=== PATIENT | male | born 1985 | race Caucasian/White ===

== ENCOUNTER 2017-06-14 17:07 | Observation (INO) ==
[2017-06-14] MEDS ORDERED: 0.9 % Sodium Chloride 1,000 ML IVC ONE (17:20)
[2017-06-14] MEDS ORDERED: *HR* HYDROmorphone (PF) 1 MG/ML SYRINGE IVP ONE (17:20)
[2017-06-14] MEDS ORDERED: Lidocaine/EPI 1:100k 1% 20 ML VIAL INFILT ONE (17:24)
--- NOTE | 2017-06-14 17:25 | Emergency Department Note ---
Disposition Clinical Impression: Syncope Qualifiers: Syncope type: unspecified Qualified Code(s): R55 - Syncope and collapse Disposition: Still a Patient Condition: Fair Referrals: NONE,PCP [Primary Care Provider] - Forms: ED Satisfaction Letter Time of Disposition: 19:22 General Adult HPI - General Chief complaint: ED Fall Stated complaint: fall Time Seen by Provider: 06/14/17 17:20 Source: patient, EMS Limitations: no limitations Nursing Notes Reviewed: Yes Vital Signs Reviewed: Yes - History of Present Illness HPI Narrative: Male patient sustained a ground-level fall at neighbor's house. They attempted to get the patient back home and he had another syncopal episode while over there. He is immobilized in a c-collar at this time. He is alert and oriented 3 however appears to be confused. Does have a laceration to the left side of his forehead. Also abrasion to his left chest wall near his left shoulder. Complains of a neck pain and left shoulder pain. Pain Scale: 8 - Related Data Previous Rx's Medication Instructions Recorded Ibuprofen [Motrin] 600 mg PO Q6-8H PRN #30 tab 05/19/16 Ondansetron [Zofran] 8 mg PO Q8HR PRN #9 tablet 05/19/16 Promethazine [Phenergan] 25 mg PO Q6-8H PRN #9 tablet 05/19/16 Allergies Allergy/AdvReac Type Severity Reaction Status Date / Time No Known Allergies Allergy Verified 05/19/16 17:44 All systems ED: reviewed and negative except as stated. Constitutional: Denies: fever ENT ED: Denies: congestion Cardiovascular: Reports: syncope. Denies: chest pain, palpitations Respiratory: Denies: cough, dyspnea Gastrointestinal: Denies: abdominal pain, nausea, vomiting, diarrhea, hematemesis, melena, hematochezia Genitourinary: Denies: urgency, dysuria, frequency, hematuria Musculoskeletal: Reports: neck pain, other (Left shoulder pain) Integumentary: Reports: abrasion, other (Laceration to left superior orbital area.) Neurological: Denies: headache Past Medical History - Past Medical History Medical history: Reports: no medical history Psychiatric history: Reports: no psych history - Social History Smoking Status: Current every day smoker Smokeless Tobacco Status: No Alcohol use: Reports: none Drug use: Reports: none Physical Exam - General Limitations: no limitations, other (Appears confused however is aware of his person place and time.) General appearance: alert, in no apparent distress - Head Head exam: normocephalic - Eye Eye exam: Present: normal appearance, EOMI, other (3 cm laceration to left superior orbital area. Linear). Absent: scleral icterus, periorbital tenderness - ENT ENT exam: normal exam, normal oropharynx, mucous membranes moist - Neck Neck exam: Present: normal inspection, trachea midline, tenderness (To palpation of C4-C5 area). Absent: lymphadenopathy - Chest Chest inspection: Present: symmetric chest wall rise, other (Abrasion to left chest wall near her left shoulder.). Absent: tenderness - Respiratory Respiratory exam: Present: normal lung sounds bilaterally. Absent: respiratory distress, accessory muscle use - Cardiovascular Cardiovascular exam: Present: regular rate, normal rhythm, normal heart sounds - Abdominal Exam Abdominal exam: Present: soft, Non-Tender, normal bowel sounds. Absent: tenderness, distention, guarding, rebound, rigidity, Almaraz's sign, Rovsing's sign - Extremities Exam Extremities exam: Present: normal capillary refill. Absent: tenderness, pedal edema - Expanded Upper Extremity Exam Shoulder exam: Present: tenderness (Palpation the left shoulder. Patient does not want to cooperate when we attempt to move the shoulder.) Arm exam: Present: normal inspection, full ROM Elbow exam: Present: normal inspection, full ROM Forearm/Wrist exam: Present: normal inspection, full ROM Hand exam: Present: normal inspection, full ROM Vascular exam: Normal: capillary refill, radial pulse - Expanded Lower Extremity Exam Hip/Pelvis exam: Present: normal inspection, full ROM Upper leg exam: Present: normal inspection, full ROM Knee exam: Present: normal inspection, full ROM Lower leg exam: Present: normal inspection, full ROM Ankle exam: Present: normal inspection, full ROM Foot/toe exam: Present: normal inspection, full ROM Neurovascular/Tendon exam: Absent: motor deficit, sensory deficit, tendon deficit - Back Exam Back exam: Present: normal inspection, full ROM. Absent: tenderness, CVA tenderness (R), CVA tenderness (L) - Neurological Exam Neurological exam: Present: alert, oriented X3 - Psychiatric Psychiatric exam: Present: normal affect, normal mood - Skin Skin exam: Present: warm, dry, intact, normal color. Absent: rash, cyanosis, diaphoresis, erythema Course Course Narrative: The patient brought in by EMS in a c-collar. They report patient was initially hypotensive for them however is normotensive now. Therefore the patient was at a neighbor's house and had a ground-level fall. Patient attempted to get the patient to his normal house and he syncopized while there. The patient is alert and oriented to person place and time at this time however does appear confused. He has a laceration to his left orbital area is fractionally 3 cm and bleeding is controlled. He also has an abrasion to his left chest wall near his left shoulder. He complains of neck pain and left shoulder pain. He has no other signs of obvious trauma. He does have tenderness to palpation of the C4 area. His pupils are equal and reactive. His airway is open and patent. Lung sounds are clear heart tones are normal abdomen is soft and nontender. Bedside fast was normal. He has full range of motion of both lower extremities with good pulses. There is no signs of deformity. He has good range of motion of his right upper extremity with good pulses in all 4 extremities. He does not want to move his left shoulder whenever I attempt to manipulate this. His pelvis is stable. Abdomen is soft and nontender with no signs of ecchymosis. Concern for possible seizure activity due to patient being confused at this time. He reports different stories to me in my attending. He initially states that he has had his tetanus shot within the past 2 weeks because he was cut by resting razor however he is now stating he did not tell me this and he has no idea what the story came from. Is no history of seizure activity. He denies any drug use or alcohol consumption. Patient's head CT was normal with a possible nasal bone fracture and C-spine scan was normal as well. His head laceration was cleaned and sutured with 3 sutures. We will provide patient with a tetanus shot. Patient's mentation was still confused at time of sign out to night crew. Vital Signs Temperature 98.3 F 06/14/17 17:08 Pulse Rate 72 06/14/17 17:08 Respiratory Rate 16 06/14/17 17:08 Blood Pressure 138/74 06/14/17 17:08 O2 Sat by Pulse Oximetry 98 06/14/17 17:08 Temperature 98.3 F 06/14/17 17:08 Pulse Rate 104 08/15/17 19:12 Respiratory Rate 14 06/14/17 19:12 Blood Pressure 124/81 06/14/17 19:12 O2 Sat by Pulse Oximetry 96 06/14/17 19:12 Oxygen Delivery Oxygen Delivery Room Air Procedures - Laceration Laceration 1 Site: face Side (If applicable): left Size (cm): 3 Description: linear Depth: simple, single layer Local Anesthetic: lidocaine 1%, with epi Amount of Anesthesia Used (mL): 4 Pre-repair: wound explored, irrigated extensively, deep structures intact Size: 6-0 Number of sutures/carie: 3 Medical Decision Making - Medical Records Medical records reviewed: Yes I reviewed the patient's medical records. - Lab Data Lab results reviewed: Yes I reviewed the patient's lab results. Result diagrams: 06/14/17 18:17 06/14/17 18:17 Lab Results 06/14/17 06/14/17 06/14/17 Range/Units 17:32 18:17 18:17 WBC 14.0 H (4.3-11.1) K/mcL RBC 4.90 (4.19-5.50) M/mcL Hgb 14.6 (12.9-16.9) g/dL Hct 44.6 (37.5-50.1) % MCV 91.0 (83.0-100.0) fL MCH 29.8 (28.0-33.3) pg MCHC 32.7 (31.6-35.5) g/dL RDW 12.5 (11.5-14.5) % Plt Count 271 (140-400) K/mcL MPV 9.9 (9.4-12.4) fL Immature Gran % 0.4 (0-4) % Seg Neutrophils % 78.1 % Lymphocytes % 12.3 % Monocytes % 6.6 % Eosinophils % 2.4 % Basophils % 0.2 % Neutrophils # 10.9 H (1.6-8.9) K/mcL Lymphocytes # 1.7 (0.6-4.6) K/mcL Monocytes # 0.9 (0.0-1.3) K/mcL Eosinophils # 0.3 (0.0-0.6) K/mcL Basophils # 0.0 (0.0-0.2) K/mcL Sodium 141 (136-145) mEq/L Potassium 4.4 (3.5-4.5) mEq/L Chloride 107 (98-109) mEq/L Carbon Dioxide 27 (19-29) mEq/L BUN 11 (8-26) mg/dL Creatinine 0.96 (0.72-1.25) mg/dL Est GFR ( Amer) > 60 (> 60) Est GFR (Non-Af Amer) > 60 (> 60) BUN/Creatinine Ratio 11 (6-26) Glucose 92 (70-99) mg/dL POC Glucose 94 H (58-89) Calculated Osmolality 291 (280-300) Calcium 9.4 (8.6-10.8) mg/dL Magnesium (1.6-2.6) mg/dL Creatine Kinase (30-200) Units/L Urine Color (Yellow) Urine Clarity (Clear) Urine pH (5.0-8.0) pH Units Ur Specific [place] (1.010-1.025) Urine Protein (Neg-Trace) mg/dL Urine Glucose (UA) (Normal) mg/dL Urine Ketones (Negative) mg/dL Urine Blood (Negative) Urine Nitrite (Negative) Urine Bilirubin (Negative) Urine Urobilinogen (Normal) mg/dL Ur Leukocyte Esterase (Negative) Urine Microscopic RBC (0-3) per hpf Urine Microscopic WBC (0-3) per hpf Ur Squamous Epith Cells (None-Few) per lpf Urine Bacteria (None-Few) per hpf Hyaline Casts (None-Few) per lpf Ur Culture Indicated? (NO) Ethyl Alcohol (0-10) mg/dL 06/14/17 06/14/17 Range/Units 18:17 19:00 WBC (4.3-11.1) K/mcL RBC (4.19-5.50) M/mcL Hgb (12.9-16.9) g/dL Hct (37.5-50.1) % MCV (83.0-100.0) fL MCH (28.0-33.3) pg MCHC (31.6-35.5) g/dL RDW (11.5-14.5) % Plt Count (140-400) K/mcL MPV (9.4-12.4) fL Immature Gran % (0-4) % Seg Neutrophils % % Lymphocytes % % Monocytes % % Eosinophils % % Basophils % % Neutrophils # (1.6-8.9) K/mcL Lymphocytes # (0.6-4.6) K/mcL Monocytes # (0.0-1.3) K/mcL Eosinophils # (0.0-0.6) K/mcL Basophils # (0.0-0.2) K/mcL Sodium (136-145) mEq/L Potassium (3.5-4.5) mEq/L Chloride (98-109) mEq/L Carbon Dioxide (19-29) mEq/L BUN (8-26) mg/dL Creatinine (0.72-1.25) mg/dL Est GFR ( Amer) (> 60) Est GFR (Non-Af Amer) (> 60) BUN/Creatinine Ratio (6-26) Glucose (70-99) mg/dL POC Glucose (58-89) Calculated Osmolality (280-300) Calcium (8.6-10.8) mg/dL Magnesium 1.7 (1.6-2.6) mg/dL Creatine Kinase 75 (30-200) Units/L Urine Color Yellow (Yellow) Urine Clarity Cloudy A (Clear) Urine pH 7.0 (5.0-8.0) pH Units Ur Specific [place] 1.022 (1.010-1.025) Urine Protein Negative (Neg-Trace) mg/dL Urine Glucose (UA) Normal (Normal) mg/dL Urine Ketones Trace H (Negative) mg/dL Urine Blood Negative (Negative) Urine Nitrite Negative (Negative) Urine Bilirubin Negative (Negative) Urine Urobilinogen Normal (Normal) mg/dL Ur Leukocyte Esterase Negative (Negative) Urine Microscopic RBC 0-3 (0-3) per hpf Urine Microscopic WBC 0-3 (0-3) per hpf Ur Squamous Epith Cells Many H (None-Few) per lpf Urine Bacteria None Seen (None-Few) per hpf Hyaline Casts None Seen (None-Few) per lpf Ur Culture Indicated? NO (NO) Ethyl Alcohol < 10 (0-10) mg/dL - Radiology Data Radiology results reviewed: Yes I reviewed the patient's radiology results. Cervical Spine CT 06/14/17 17:20 IMPRESSION: No acute abnormality of the cervical spine. D/ / Jong Kamara MD / Jong Kamara MD Interpreting Provider: Jong Kamara MD Chest X-Ray 06/14/17 17:20 IMPRESSION: Normal chest. D/ / Jong Kamara MD / Jong Kamara MD Interpreting Provider: Jong Kamara MD Head CT 06/14/17 17:20 IMPRESSION: No acute intracranial abnormality. D/ / Liana Alamo MD / Liana Alamo MD Interpreting Provider: Liana Alamo MD Shoulder X-Ray 06/14/17 17:29 IMPRESSION: No acute osseous abnormality. D/ / Nicholas Talavera / Nicholas Talavera Interpreting Provider: Nicholas Talavera Face CT 06/14/17 17:38 IMPRESSION: Question non right nasal bone fracture No acute osseous abnormality otherwise. D/ / Nicholas Talavera / Nicholas Talavera Interpreting Provider: Nicholas Talavera S.B.ABaltazar - S.BYasminAYasminRYasmin Background: Presenting Complaint (Syncope with fall and striking his head. Confusion on arrival.), Relevant PMH, Meds, & Allergies (None) Assessment: Vital Signs (EMS reports hypotension initially.), Course and respsone to treatment (Fluid bolus CT scan laceration repair. Tetanus shot.), Exam Concerns (Patient still appears to be confused however he is alert and oriented to person place and time.) Recommendation: Recommendation based on pending studies, treatments, or consults (Repeat neuro exam possible admission if neuro status is unclear.) S.B.A.RYasmin Report Given to: Viky Kaufman Time: 19:23
[2017-06-14] MEDS ORDERED: Tdap (Boostrix) Vaccine 0.5 ML SYRINGE IM ONE (17:30)
--- NOTE | 2017-06-14 17:30 | Emergency Department Note ---
Disposition Clinical Impression: Syncope, Substance abuse Disposition: Admitted As Inpatient Condition: Good General Adult HPI - General Chief complaint: ED Fall Stated complaint: fall Time Seen by Provider: 06/14/17 17:20 Source: patient, EMS Limitations: no limitations - History of Present Illness Pain Scale: 8 - Related Data Home Medications Medication Instructions Recorded Confirmed No Known Home Drugs 06/14/17 06/14/17 Allergies Allergy/AdvReac Type Severity Reaction Status Date / Time No Known Allergies Allergy Verified 05/19/16 17:44 Past Medical History - Past Medical History Medical history: Reports: no medical history Psychiatric history: Reports: no psych history - Social History Smoking Status: Current every day smoker Smokeless Tobacco Status: No Alcohol use: Reports: none Drug use: Reports: none Physical Exam - General Limitations: no limitations General appearance: alert, in no apparent distress Course Vital Signs Temperature 98.3 F 06/14/17 17:08 Pulse Rate 72 06/14/17 17:08 Respiratory Rate 16 06/14/17 17:08 Blood Pressure 138/74 06/14/17 17:08 O2 Sat by Pulse Oximetry 98 06/14/17 17:08 Temperature 98.2 F 06/15/17 06:53 Pulse Rate 77 06/15/17 06:53 Respiratory Rate 16 06/15/17 06:53 Blood Pressure 124/82 06/15/17 06:53 O2 Sat by Pulse Oximetry 98 06/15/17 06:53 Oxygen Delivery Oxygen Delivery Room Air Medical Decision Making - Lab Data Result diagrams: 06/15/17 04:47 06/14/17 18:17 Lab Results 06/14/17 06/14/17 06/14/17 Range/Units 17:32 18:17 18:17 WBC 14.0 H (4.3-11.1) K/mcL RBC 4.90 (4.19-5.50) M/mcL Hgb 14.6 (12.9-16.9) g/dL Hct 44.6 (37.5-50.1) % MCV 91.0 (83.0-100.0) fL MCH 29.8 (28.0-33.3) pg MCHC 32.7 (31.6-35.5) g/dL RDW 12.5 (11.5-14.5) % Plt Count 271 (140-400) K/mcL MPV 9.9 (9.4-12.4) fL Immature Gran % 0.4 (0-4) % Seg Neutrophils % 78.1 % Lymphocytes % 12.3 % Monocytes % 6.6 % Eosinophils % 2.4 % Basophils % 0.2 % Neutrophils # 10.9 H (1.6-8.9) K/mcL Lymphocytes # 1.7 (0.6-4.6) K/mcL Monocytes # 0.9 (0.0-1.3) K/mcL Eosinophils # 0.3 (0.0-0.6) K/mcL Basophils # 0.0 (0.0-0.2) K/mcL Sodium 141 (136-145) mEq/L Potassium 4.4 (3.5-4.5) mEq/L Chloride 107 (98-109) mEq/L Carbon Dioxide 27 (19-29) mEq/L BUN 11 (8-26) mg/dL Creatinine 0.96 (0.72-1.25) mg/dL Est GFR ( Amer) > 60 (> 60) Est GFR (Non-Af Amer) > 60 (> 60) BUN/Creatinine Ratio 11 (6-26) Glucose 92 (70-99) mg/dL POC Glucose 94 H (58-89) Calculated Osmolality 291 (280-300) Calcium 9.4 (8.6-10.8) mg/dL Magnesium (1.6-2.6) mg/dL Creatine Kinase (30-200) Units/L Troponin I (0-0.03) ng/mL Urine Color (Yellow) Urine Clarity (Clear) Urine pH (5.0-8.0) pH Units Ur Specific [place] (1.010-1.025) Urine Protein (Neg-Trace) mg/dL Urine Glucose (UA) (Normal) mg/dL Urine Ketones (Negative) mg/dL Urine Blood (Negative) Urine Nitrite (Negative) Urine Bilirubin (Negative) Urine Urobilinogen (Normal) mg/dL Ur Leukocyte Esterase (Negative) Urine Microscopic RBC (0-3) per hpf Urine Microscopic WBC (0-3) per hpf Ur Squamous Epith Cells (None-Few) per lpf Urine Bacteria (None-Few) per hpf Hyaline Casts (None-Few) per lpf Ur Culture Indicated? (NO) Urine Opiates Screen (Bqtpxe=519) ng/mL Ur Barbiturates Screen (Shjrel=513) ng/mL Ur Phencyclidine Scrn (Cutoff=25) ng/mL Ur Amphetamines Screen (Rmkpzt=4860) ng/mL U Benzodiazepines Scrn (Yxukpy=467) ng/mL Urine Cocaine Screen (Cutoff= 300) ng/mL U Marijuana (THC) Screen (Cutoff = 50) ng/mL Ethyl Alcohol (0-10) mg/dL 06/14/17 06/14/17 06/14/17 Range/Units 18:17 18:17 19:00 WBC (4.3-11.1) K/mcL RBC (4.19-5.50) M/mcL Hgb (12.9-16.9) g/dL Hct (37.5-50.1) % MCV (83.0-100.0) fL MCH (28.0-33.3) pg MCHC (31.6-35.5) g/dL RDW (11.5-14.5) % Plt Count (140-400) K/mcL MPV (9.4-12.4) fL Immature Gran % (0-4) % Seg Neutrophils % % Lymphocytes % % Monocytes % % Eosinophils % % Basophils % % Neutrophils # (1.6-8.9) K/mcL Lymphocytes # (0.6-4.6) K/mcL Monocytes # (0.0-1.3) K/mcL Eosinophils # (0.0-0.6) K/mcL Basophils # (0.0-0.2) K/mcL Sodium (136-145) mEq/L Potassium (3.5-4.5) mEq/L Chloride (98-109) mEq/L Carbon Dioxide (19-29) mEq/L BUN (8-26) mg/dL Creatinine (0.72-1.25) mg/dL Est GFR ( Amer) (> 60) Est GFR (Non-Af Amer) (> 60) BUN/Creatinine Ratio (6-26) Glucose (70-99) mg/dL POC Glucose (58-89) Calculated Osmolality (280-300) Calcium (8.6-10.8) mg/dL Magnesium 1.7 (1.6-2.6) mg/dL Creatine Kinase 75 (30-200) Units/L Troponin I 0.00 (0-0.03) ng/mL Urine Color Yellow (Yellow) Urine Clarity Cloudy A (Clear) Urine pH 7.0 (5.0-8.0) pH Units Ur Specific [place] 1.022 (1.010-1.025) Urine Protein Negative (Neg-Trace) mg/dL Urine Glucose (UA) Normal (Normal) mg/dL Urine Ketones Trace H (Negative) mg/dL Urine Blood Negative (Negative) Urine Nitrite Negative (Negative) Urine Bilirubin Negative (Negative) Urine Urobilinogen Normal (Normal) mg/dL Ur Leukocyte Esterase Negative (Negative) Urine Microscopic RBC 0-3 (0-3) per hpf Urine Microscopic WBC 0-3 (0-3) per hpf Ur Squamous Epith Cells Many H (None-Few) per lpf Urine Bacteria None Seen (None-Few) per hpf Hyaline Casts None Seen (None-Few) per lpf Ur Culture Indicated? NO (NO) Urine Opiates Screen (Dzwhhq=079) ng/mL Ur Barbiturates Screen (Oxgcbx=039) ng/mL Ur Phencyclidine Scrn (Cutoff=25) ng/mL Ur Amphetamines Screen (Ycfbeq=9129) ng/mL U Benzodiazepines Scrn (Adivih=631) ng/mL Urine Cocaine Screen (Cutoff= 300) ng/mL U Marijuana (THC) Screen (Cutoff = 50) ng/mL Ethyl Alcohol < 10 (0-10) mg/dL 06/14/17 Range/Units 19:00 WBC (4.3-11.1) K/mcL RBC (4.19-5.50) M/mcL Hgb (12.9-16.9) g/dL Hct (37.5-50.1) % MCV (83.0-100.0) fL MCH (28.0-33.3) pg MCHC (31.6-35.5) g/dL RDW (11.5-14.5) % Plt Count (140-400) K/mcL MPV (9.4-12.4) fL Immature Gran % (0-4) % Seg Neutrophils % % Lymphocytes % % Monocytes % % Eosinophils % % Basophils % % Neutrophils # (1.6-8.9) K/mcL Lymphocytes # (0.6-4.6) K/mcL Monocytes # (0.0-1.3) K/mcL Eosinophils # (0.0-0.6) K/mcL Basophils # (0.0-0.2) K/mcL Sodium (136-145) mEq/L Potassium (3.5-4.5) mEq/L Chloride (98-109) mEq/L Carbon Dioxide (19-29) mEq/L BUN (8-26) mg/dL Creatinine (0.72-1.25) mg/dL Est GFR ( Amer) (> 60) Est GFR (Non-Af Amer) (> 60) BUN/Creatinine Ratio (6-26) Glucose (70-99) mg/dL POC Glucose (58-89) Calculated Osmolality (280-300) Calcium (8.6-10.8) mg/dL Magnesium (1.6-2.6) mg/dL Creatine Kinase (30-200) Units/L Troponin I (0-0.03) ng/mL Urine Color (Yellow) Urine Clarity (Clear) Urine pH (5.0-8.0) pH Units Ur Specific [place] (1.010-1.025) Urine Protein (Neg-Trace) mg/dL Urine Glucose (UA) (Normal) mg/dL Urine Ketones (Negative) mg/dL Urine Blood (Negative) Urine Nitrite (Negative) Urine Bilirubin (Negative) Urine Urobilinogen (Normal) mg/dL Ur Leukocyte Esterase (Negative) Urine Microscopic RBC (0-3) per hpf Urine Microscopic WBC (0-3) per hpf Ur Squamous Epith Cells (None-Few) per lpf Urine Bacteria (None-Few) per hpf Hyaline Casts (None-Few) per lpf Ur Culture Indicated? (NO) Urine Opiates Screen Negative (Hbynst=545) ng/mL Ur Barbiturates Screen Negative (Buuvyh=267) ng/mL Ur Phencyclidine Scrn Negative (Cutoff=25) ng/mL Ur Amphetamines Screen Positive H (Wqxszk=9958) ng/mL U Benzodiazepines Scrn Negative (Hernok=287) ng/mL Urine Cocaine Screen Negative (Cutoff= 300) ng/mL U Marijuana (THC) Screen Positive H (Cutoff = 50) ng/mL Ethyl Alcohol (0-10) mg/dL Attestation Statement - Attestation Attestation: I examined this patient and my medical decision-making was reviewed with the Resident Physician. I agree with the documented findings, disposition and treatment plan as described except to the extent set forth below. [id number] time provided Patient is a poor historian. I am uncertain whether this is because he is post ictal. This is the second episode that happened since May [id number]. The event was witnessed by a family member. He has a 3 cm laceration to his left periorbital region. He is wearing a cervical collar. Plan of care and management discussed by me with the resident physician 18:48: Care to be endorsed to the oncoming physician Dr. Salmon at [address] results and reevaluation
[2017-06-14 18:28] LABS: Basophils % 0.2 %; Eosinophils # 0.3 K/mcL (0.0-0.6); Eosinophils % 2.4 %; Hematocrit 44.6 % (37.5-50.1); Hemoglobin 14.6 g/dL (12.9-16.9); Immature Granulocytes % 0.4 % (0-4); Lymphocytes # 1.7 K/mcL (0.6-4.6); Lymphocytes % 12.3 %; Mean Corpuscular HGB Conc 32.7 g/dL (31.6-35.5); Mean Corpuscular Hemoglobin 29.8 pg (28.0-33.3); Mean Platelet Volume 9.9 fL (9.4-12.4); Monocytes # 0.9 K/mcL (0.0-1.3); Monocytes % 6.6 %; Neutrophils # 10.9 K/mcL (1.6-8.9); Platelet Count 271 K/mcL (140-400); Red Cell Distribution Width 12.5 % (11.5-14.5); Segmented Neutrophils % 78.1 %
[2017-06-14 18:42] LABS: Creatine Kinase 75 Units/L (30-200); Magnesium 1.7 mg/dL (1.6-2.6)
[2017-06-14 18:43] LABS: BUN/Creatinine Ratio 11 (6-26); Blood Urea Nitrogen 11 mg/dL (8-26); Calcium 9.4 mg/dL (8.6-10.8); Carbon Dioxide 27 mEq/L (19-29); Chloride 107 mEq/L (98-109); Ethanol < 10 mg/dL (0-10); Glucose 92 mg/dL (70-99); Osmolality,Calculated 291 (280-300); Potassium 4.4 mEq/L (3.5-4.5); Sodium 141 mEq/L (136-145); eGFR For African Americans > 60 (> 60); eGFR For Non-African Americans > 60 (> 60)
[2017-06-14 19:11] LABS: Bilirubin,Urine Negative (Negative); Blood,Urine Negative (Negative); Clarity,Urine Cloudy (Clear); Color,Urine Yellow (Yellow); Glucose,Urine (UA) Normal (Normal); Ketones,Urine Trace mg/dL (Negative); Leukocyte Esterase,Urine Negative (Negative); Nitrite,Urine Negative (Negative); Protein,Urine Negative (Neg-Trace); Specific Gravity,Urine 1.022 (1.010-1.025); Urobilinogen,Urine Normal (Normal)
[2017-06-14 19:13] LABS: Bacteria,Urine None Seen per hpf (None-Few); Hyaline Casts,Urine None Seen per lpf (None-Few); RBC,Urine 0-3 per hpf (0-3); Squamous Epithelial Cell,Urine Many per lpf (None-Few); WBC,Urine 0-3 per hpf (0-3)
[2017-06-14 19:17] LABS: Amphetamine Screen,Urine Positive ng/mL (Cutoff=1000); Barbiturate Screen,Urine Negative ng/mL (Cutoff=200); Benzodiazepines Screen,Urine Negative ng/mL (Cutoff=200); Cannabinoid Screen,Urine Positive ng/mL (Cutoff = 50); Cocaine Screen,Urine Negative ng/mL (Cutoff= 300); Opiate Screen,Urine Negative ng/mL (Cutoff=300); Phencyclidine Screen,Urine Negative ng/mL (Cutoff=25)
--- NOTE | 2017-06-14 21:09 | Emergency Department Note ---
Disposition Clinical Impression: Substance abuse Syncope Qualifiers: Syncope type: unspecified Qualified Code(s): R55 - Syncope and collapse Disposition: Admitted As Inpatient Condition: Good General Adult HPI - General Chief complaint: ED Fall Stated complaint: fall Time Seen by Provider: 06/14/17 17:20 Source: patient, EMS Limitations: no limitations, other (Appears confused however is aware of his person place and time.) Nursing Notes Reviewed: Yes Vital Signs Reviewed: Yes - History of Present Illness Pain Scale: 8 - Related Data Home Medications Medication Instructions Recorded Confirmed No Known Home Drugs 06/14/17 06/14/17 Allergies Allergy/AdvReac Type Severity Reaction Status Date / Time No Known Allergies Allergy Verified 05/19/16 17:44 Constitutional: Denies: fever ENT ED: Denies: congestion Cardiovascular: Reports: syncope. Denies: chest pain, palpitations Respiratory: Denies: cough, dyspnea Gastrointestinal: Denies: abdominal pain, nausea, vomiting, diarrhea, hematemesis, melena, hematochezia Genitourinary: Denies: urgency, dysuria, frequency, hematuria Musculoskeletal: Reports: neck pain, other (Left shoulder pain) Integumentary: Reports: abrasion, other (Laceration to left superior orbital area.) Neurological: Denies: headache Past Medical History - Past Medical History Medical history: Reports: no medical history Psychiatric history: Reports: no psych history - Social History Smoking Status: Current every day smoker Smokeless Tobacco Status: No Alcohol use: Reports: none Drug use: Reports: none Physical Exam - General Limitations: no limitations, other (Appears confused however is aware of his person place and time.) General appearance: alert, in no apparent distress Course - Reevaluation(s) Reevaluation #1: Patient taken over at signout from Dr. Gonzalez. The patient has had 2 episodes of "falling out". Both involving head injuries and been associated with significant confusion afterwards. High concern for possible seizure versus syncope. The patient's EKG is normal sinus rhythm. Patient with slightly elevated white count. Urine tox shows marijuana and amphetamines. Patient denies amphetamine use. Patient states that he drinks 8 monster energy drinks daily. Discussed with neurology. These episodes do not warrants the administration of seizure medications at this time. High concern for cardiac etiology due to amphetamine and caffeine use. Patient can be brought in for observation and they will see as a consult tomorrow. - Consultations Consultation #1: Discussed with neurology. See reevaluation note. Patient to be brought in for evaluation of syncope versus seizure. Discussed with hospitalist, Dr. Duran. Patient accepted for admission. Vital Signs Temperature 98.3 F 06/14/17 17:08 Pulse Rate 72 06/14/17 17:08 Respiratory Rate 16 06/14/17 17:08 Blood Pressure 138/74 06/14/17 17:08 O2 Sat by Pulse Oximetry 98 06/14/17 17:08 Temperature 98.3 F 06/14/17 17:08 Pulse Rate 99 06/14/17 20:58 Respiratory Rate 20 06/14/17 22:09 Blood Pressure 128/85 06/14/17 22:09 O2 Sat by Pulse Oximetry 98 06/14/17 20:58 Oxygen Delivery Oxygen Delivery Room Air Medical Decision Making - Medical Records Medical records reviewed: Yes I reviewed the patient's medical records. - Lab Data Lab results reviewed: Yes I reviewed the patient's lab results. Result diagrams: 06/14/17 18:17 06/14/17 18:17 Lab Results 06/14/17 06/14/17 06/14/17 Range/Units 17:32 18:17 18:17 WBC 14.0 H (4.3-11.1) K/mcL RBC 4.90 (4.19-5.50) M/mcL Hgb 14.6 (12.9-16.9) g/dL Hct 44.6 (37.5-50.1) % MCV 91.0 (83.0-100.0) fL MCH 29.8 (28.0-33.3) pg MCHC 32.7 (31.6-35.5) g/dL RDW 12.5 (11.5-14.5) % Plt Count 271 (140-400) K/mcL MPV 9.9 (9.4-12.4) fL Immature Gran % 0.4 (0-4) % Seg Neutrophils % 78.1 % Lymphocytes % 12.3 % Monocytes % 6.6 % Eosinophils % 2.4 % Basophils % 0.2 % Neutrophils # 10.9 H (1.6-8.9) K/mcL Lymphocytes # 1.7 (0.6-4.6) K/mcL Monocytes # 0.9 (0.0-1.3) K/mcL Eosinophils # 0.3 (0.0-0.6) K/mcL Basophils # 0.0 (0.0-0.2) K/mcL Sodium 141 (136-145) mEq/L Potassium 4.4 (3.5-4.5) mEq/L Chloride 107 (98-109) mEq/L Carbon Dioxide 27 (19-29) mEq/L BUN 11 (8-26) mg/dL Creatinine 0.96 (0.72-1.25) mg/dL Est GFR ( Amer) > 60 (> 60) Est GFR (Non-Af Amer) > 60 (> 60) BUN/Creatinine Ratio 11 (6-26) Glucose 92 (70-99) mg/dL POC Glucose 94 H (58-89) Calculated Osmolality 291 (280-300) Calcium 9.4 (8.6-10.8) mg/dL Magnesium (1.6-2.6) mg/dL Creatine Kinase (30-200) Units/L Urine Color (Yellow) Urine Clarity (Clear) Urine pH (5.0-8.0) pH Units Ur Specific Indian (1.010-1.025) Urine Protein (Neg-Trace) mg/dL Urine Glucose (UA) (Normal) mg/dL Urine Ketones (Negative) mg/dL Urine Blood (Negative) Urine Nitrite (Negative) Urine Bilirubin (Negative) Urine Urobilinogen (Normal) mg/dL Ur Leukocyte Esterase (Negative) Urine Microscopic RBC (0-3) per hpf Urine Microscopic WBC (0-3) per hpf Ur Squamous Epith Cells (None-Few) per lpf Urine Bacteria (None-Few) per hpf Hyaline Casts (None-Few) per lpf Ur Culture Indicated? (NO) Urine Opiates Screen (Jszpgs=860) ng/mL Ur Barbiturates Screen (Drilcm=546) ng/mL Ur Phencyclidine Scrn (Cutoff=25) ng/mL Ur Amphetamines Screen (Pfprkd=8617) ng/mL U Benzodiazepines Scrn (Skyerr=107) ng/mL Urine Cocaine Screen (Cutoff= 300) ng/mL U Marijuana (THC) Screen (Cutoff = 50) ng/mL Ethyl Alcohol (0-10) mg/dL 06/14/17 06/14/17 06/14/17 Range/Units 18:17 19:00 19:00 WBC (4.3-11.1) K/mcL RBC (4.19-5.50) M/mcL Hgb (12.9-16.9) g/dL Hct (37.5-50.1) % MCV (83.0-100.0) fL MCH (28.0-33.3) pg MCHC (31.6-35.5) g/dL RDW (11.5-14.5) % Plt Count (140-400) K/mcL MPV (9.4-12.4) fL Immature Gran % (0-4) % Seg Neutrophils % % Lymphocytes % % Monocytes % % Eosinophils % % Basophils % % Neutrophils # (1.6-8.9) K/mcL Lymphocytes # (0.6-4.6) K/mcL Monocytes # (0.0-1.3) K/mcL Eosinophils # (0.0-0.6) K/mcL Basophils # (0.0-0.2) K/mcL Sodium (136-145) mEq/L Potassium (3.5-4.5) mEq/L Chloride (98-109) mEq/L Carbon Dioxide (19-29) mEq/L BUN (8-26) mg/dL Creatinine (0.72-1.25) mg/dL Est GFR ( Amer) (> 60) Est GFR (Non-Af Amer) (> 60) BUN/Creatinine Ratio (6-26) Glucose (70-99) mg/dL POC Glucose (58-89) Calculated Osmolality (280-300) Calcium (8.6-10.8) mg/dL Magnesium 1.7 (1.6-2.6) mg/dL Creatine Kinase 75 (30-200) Units/L Urine Color Yellow (Yellow) Urine Clarity Cloudy A (Clear) Urine pH 7.0 (5.0-8.0) pH Units Ur Specific Indian 1.022 (1.010-1.025) Urine Protein Negative (Neg-Trace) mg/dL Urine Glucose (UA) Normal (Normal) mg/dL Urine Ketones Trace H (Negative) mg/dL Urine Blood Negative (Negative) Urine Nitrite Negative (Negative) Urine Bilirubin Negative (Negative) Urine Urobilinogen Normal (Normal) mg/dL Ur Leukocyte Esterase Negative (Negative) Urine Microscopic RBC 0-3 (0-3) per hpf Urine Microscopic WBC 0-3 (0-3) per hpf Ur Squamous Epith Cells Many H (None-Few) per lpf Urine Bacteria None Seen (None-Few) per hpf Hyaline Casts None Seen (None-Few) per lpf Ur Culture Indicated? NO (NO) Urine Opiates Screen Negative (Tcyeew=662) ng/mL Ur Barbiturates Screen Negative (Ddklky=375) ng/mL Ur Phencyclidine Scrn Negative (Cutoff=25) ng/mL Ur Amphetamines Screen Positive H (Ygizbs=4301) ng/mL U Benzodiazepines Scrn Negative (Zhkvqf=306) ng/mL Urine Cocaine Screen Negative (Cutoff= 300) ng/mL U Marijuana (THC) Screen Positive H (Cutoff = 50) ng/mL Ethyl Alcohol < 10 (0-10) mg/dL - Radiology Data Radiology results reviewed: Yes I reviewed the patient's radiology results. - EKG Data EKG #1 EKG attestation: Yes I reviewed and interpreted this EKG. EKG results narrative: EKG shows sinus rhythm with ventricular rate of 95 bpm. CA interval 141. QRS 93. QTC 369. No significant ST elevations or depressions. No previous EKG for comparison. Attestation Statement - Attestation Attestation: I, José Salmon MD, personally evaluated this patient and discussed their management with the resident physician. I reviewed the resident's note and agree with the documented findings, medical decision making, and plan of care. This patient was signed out at shift change from Dr. Gonzalez and Dr. Maurer. Please refer to their notes for complete details of the history and physical examination. Patient is a 31-year-old male with a history of a questionable syncopal episode and fell and hit his head. He had a laceration to the lateral aspect of the left eye which was sutured. He had a similar episode 2 weeks ago. Family reports that he seemed to be dazed and confused with a blank stare no definite tonic-clonic seizure activity. No incontinence of urine. No tongue biting. Patient did seem to be confused and Postictal after the episode. On examination patient is a well-developed well-nourished young male in no acute distress. He is alert and oriented 3. There is no cyanosis or diaphoresis. Some mild posterior neck tenderness with full range of motion. Chest is nontender to palpation. Breath sounds clear and equal bilaterally. Heart regular rate and rhythm. Abdomen soft and nontender with normal bowel sounds. CT of the head and cervical spine was negative. Chest x-ray negative. No acute abnormality on EKG. Labs reviewed. Dr. Donahue discussed the case with the neurologist [employer], Dr. Suarez, and he recommended hospital admission with observation on telemetry. He was more concerned about an arrhythmia as opposed to seizure activity. He will consult on the patient. The hospitalist, Dr. Duran, was consulted and accepted admission of the patient.
[2017-06-14] MEDS ORDERED: Acetaminophen 325 MG TABLET PO PRN (22:22)
[2017-06-14] MEDS ORDERED: Ondansetron 4 MG/2 ML VIAL IVP PRN (22:22)
[2017-06-14] MEDS ORDERED: Naloxone 0.4 MG/ML INJ IVP PRN (22:22)
[2017-06-14] MEDS ORDERED: *HR* Morphine 2 MG/ML SYRINGE IVP PRN (22:22)
--- NOTE | 2017-06-14 22:29 | Internal Med History&Physical ---
<Francisco Javier Ashley - Last Filed: 06/14/17 22:47> Date of Encounter: 06/14/17 Time of Encounter: 21:30 Assessment and Plan (1) Syncope Current visit: Yes Status: Acute - With two reported syncopal episodes. - Unclear etiology at this time. Differentials include cardiogenic (given reported chest pain), seizure (given reported confusion in ED), vasovagal, orthostatic hypotension, intracranial bleeding (less likely given negative head CT). - Continue telemetry monitoring and obtain EKG, bilateral carotid duplex & echocardiogram for further cardiogenic syncope work-up. - Neurology has been consulted for the concern of seizure. Appreciate neurology evaluation and recommendations. Will also obtain EEG and brain MRI for further evaluation. - Check orthostatic vital signs and TSH. - Fall precaution. Qualifiers: Syncope type: unspecified Qualified Code(s): R55 - Syncope and collapse (2) Chest pain Current visit: Yes Status: Acute - Patient reports intermittent sharp left-sided chest pain. - Will check EKG and troponin. - Continue telemetry monitoring. Qualifiers: Chest pain type: unspecified Qualified Code(s): R07.9 - Chest pain, unspecified (3) Fall Current visit: Yes Status: Acute - Mechanical ground-level per patient. - With left anterior shoulder laceration and left forehead laceration, which is s/p suture. - CT head, cervical spine, face and XR Left shoulder found no acute abnormality. - Fall precaution. Qualifiers: Encounter type: initial encounter Qualified Code(s): W19.XXXA - Unspecified fall, initial encounter (4) Substance abuse Current visit: Yes Status: Acute - UDS positive for amphetamine and marijuana. - Potential contribution to syncopal episodes. (5) Tobacco abuse Current visit: Yes Status: Acute - Smoking cessation counseling. - Consider giving nicotine gum or patch as needed for nicotine craving. (6) DVT prophylaxis Current visit: Yes Status: Acute - SQ heparin. Internal Medicine - H&P: HPI Chief complaint: Syncope Admitted From: Emergency Dept Plans for Post Hospital Care: Home History of present illness: Mr. Polk is a 31 year old male without significant PMH who was sent to [facility] ED after an episode of syncope. Patient had a mechanical fall and got laceration on her left face and shoulder. Patient went home and had a syncopal episode. Patient reports having lightheadedness, sharp left-side chest pain and diaphoresis before/during the syncopal episode. It's witnessed by his mom and sister but no one mentioned any jerking, tongue biting or incontinence. Patient also reports some chills and dysphagia. Patient denies vision change, hearing change, numbness/tingling, focal weakness, fever, cough, dysuria, nausea, vomiting, diarrhea, abdominal pain. Patient admits smoking weeds but denies illicit drug use including amphetamine. Patient denies known history of seizure. Patient was noted to have leukocytosis and some confusion in ED. ED physician had consulted neurology for concern of seizure. CT head, cervical spine, face found no acute abnormality. Left shoulder XR and CXR found no acute abnormality. Past Med Surg Social Fam HX - Past Medical History Medical history: no medical history Psychiatric history: no psych history - Past Surgical History Surgical History: no surgical history - Social History Smoking Status: Current every day smoker Smokeless Tobacco Status: No Alcohol use: none Drug use: marijuana - Family History Mother Hx Family Cancer: Yes Internal Medicine - H&P: Meds No Known Home Drugs 06/14/17 [History] Allergies No Known Allergies Allergy (Verified 05/19/16 17:44) All Systems PM: A 10-system review of systems was performed and is negative for pertinent findings except as documented above in the HPI. - Constitutional Constitutional: chills, no anorexia, no fever(s) - EENT Eyes: no change in vision Ears: no decreased hearing Nose, mouth and throat: dysphagia, neck pain (after the fall) - Cardiovascular Cardiovascular ROS IM: as per HPI, chest pain, lightheadedness, syncope, no edema, no palpitations - Respiratory Respiratory: no cough, no dyspnea, no hemoptysis - Gastrointestinal Gastrointestinal: no abdominal pain, no diarrhea, no hematochezia, no melena, no nausea, no vomiting - Genitourinary Genitourinary ROS male: no difficulty urinating, no dysuria, no hematuria - Integumentary Integumentary IM: no pruritus, no rash - Neurological Neurological ROS: headache(s) (left-sided, after the fall), no focal weakness, no numbness, no tingling - Hematologic/Lymphatic Hematologic/Lymphatic: no easy bleeding, no easy bruising - Constitutional Vitals: Temp Pulse Resp BP Pulse Ox 98.3 F 99 20 128/85 98 06/14/17 17:08 06/14/17 20:58 06/14/17 22:09 06/14/17 22:09 06/14/17 20:58 General appearance: Present: cooperative, A&O X 3, no acute distress, answers questions appropriately - Head Head exam: Present: atraumatic, normocephalic - Eye Eye exam: Present: EOMI, PERRL, conjuntiva pink, sclera anicteric - Neck Neck exam general surgery: Present: supple, trachea midline. Absent: lymphadenopathy - Respiratory Respiratory exam: Present: CTAB. Absent: accessory muscle use, rales, rhonchi, wheezes - Cardiovascular Cardiovascular exam: Present: +S1, +S2, tachycardia. Absent: diastolic murmur, gallop, rubs, systolic murmur - GI/Abdominal GI/Abdominal exam: Present: normal bowel sounds, soft, no peritoneal signs. Absent: distended, tenderness - Extremities Exam Extremities exam: Present: warm, radial pulses palpable and symmetrical. Absent : calf tenderness, cyanotic, pedal edema - Neurological Exam Neurological exam: Present: CN II-XII intact, oriented X3, no focal deficits. Absent: pronater drift, facial droop, speech deficit - Skin Skin exam: Present: abrasion (left forehead, s/p suture. Left front shoulder), dry, warm Internal Med - H&P Results - Labs CBC & Chem 7: 06/14/17 18:17 06/14/17 18:17 <Cuong Duran - Last Filed: 06/15/17 01:47> Date of Encounter: 06/15/17 Internal Medicine - H&P: HPI History of present illness: Mr. Polk is a 31 year old male All Systems PM: A 10-system review of systems was performed and is negative for pertinent findings except as documented above in the HPI. - Constitutional Vitals: Temp Pulse Resp BP Pulse Ox 98.9 F 83 16 117/77 100 06/14/17 22:29 06/14/17 22:29 06/14/17 22:29 06/14/17 22:29 06/14/17 22:29 Internal Med - H&P Results - Labs CBC & Chem 7: 06/14/17 18:17 06/14/17 18:17 - Attending Attestation I saw and examined pt. I have discussed with resident physician regarding the management plan, agree with the documentation. Pt has two episodes of syncope. Full workup of syncope placed. Neurology consult will see pt. Closely monitor pt now. Pt has multiple drug positive on Urine toxicity screen.
[2017-06-14] MEDS: *HR* HYDROcodone/Acet 5/325 mg TABLET PO PRN (23:01)
[2017-06-15 05:24] LABS: Basophils % 0.3 %; Eosinophils # 0.7 K/mcL (0.0-0.6); Eosinophils % 6.1 %; Hematocrit 42.3 % (37.5-50.1); Hemoglobin 13.8 g/dL (12.9-16.9); Immature Granulocytes % 0.3 % (0-4); Lymphocytes # 2.9 K/mcL (0.6-4.6); Lymphocytes % 26.7 %; Mean Corpuscular HGB Conc 32.6 g/dL (31.6-35.5); Mean Platelet Volume 10.3 fL (9.4-12.4); Monocytes # 0.8 K/mcL (0.0-1.3); Monocytes % 7.7 %; Neutrophils # 6.4 K/mcL (1.6-8.9); Platelet Count 239 K/mcL (140-400); Red Cell Distribution Width 12.7 % (11.5-14.5); Segmented Neutrophils % 58.9 %
[2017-06-15] MEDS: *HR* Heparin 5,000 UNIT/ML VIAL SQ SCH ×3 (05:57→20:44)
[2017-06-15] MEDS: *HR* HYDROcodone/Acet 5/325 mg TABLET PO PRN ×2 (12:28→20:55)
--- NOTE | 2017-06-15 12:59 | EEG/EMG/Oth Biometrics Report ---
EEG Procedure Report Date of procedure: 06/15/17 EEG Procedure: Routine EEG Procedure Note: This is a report of a 21 channel bipolar and referential montage EEG. The posterior dominant rhythm of 10 Hz moderate voltage alpha frequencies identified symmetrically in the posterior head regions. This rhythm attenuates symmetrically with eye opening. Hyperventilation is performed and does not significantly alter the recording. Periods of drowsiness are identified as reference by dropout posterior dominant rhythm and emergence of mixed theta and delta frequencies anteriorly. A separate does not approach stage II sleep. Photic stimulation is performed and producea a symmetric driving response. The EKG rhythm strip reveals normal sinus rhythm with rate is irregular ranging between 54-60 BPM. With frequent pauses are also identified in the EKG rhythm strip. Impressions: This EEG recording is within normal limits. There is no evidence of epileptiform activity identified during the study. Comment: The EKG rhythm strip is an abnormal. The rate is irregular and frequent pauses are identified. Consider cardiology consultation for further assessment. Please correlate clinically.
--- NOTE | 2017-06-15 15:16 | Electrocardiograph Report ---
[address] [address] Test Date: 2017-06-14 Pat Name: Matias Polk Department: 0 Room: 3B Gender: M Stations Superintendent: Am : 1985 Requested By: Francisco Javier Ashley Order Number: [id number] Reading MD: Alf De La Paz MD Measurements Intervals [place] Rate: 95 P: 72 [place]: 141 QRS: 83 QRSD: 93 T: 63 QT: 316 QTc: 369 Interpretive Statements SINUS RHYTHM Electronically Signed On 06-15-2017 15:14:40 EDT by Alf De La Paz MD
--- NOTE | 2017-06-15 18:46 | Neurology - Consult Note ---
Date of Encounter: 06/15/17 Time of Encounter: 18:43 Assessment and Plan (1) Spell of altered consciousness Current Visit: Yes Status: Acute The exact etiology of this patient's loss of consciousness is unknown. However the 2 items on the differential which would come to mind are seizure versus syncope. His MRI as well as EEG were both normal. However EKG does reveal abnormalities. The rhythm strip did show some pauses between beats. There is also amphetamine in his urine tox screen therefore perhaps cardiac arrhythmia due to symptomatic etiologies should be considered. I am not convinced that this was a seizure. I would recommend a cardiac evaluation and further opinion on whether or not he could have episodes of symptomatic bradycardia. I do not feel seizure precautions are necessary. Certainly consideration of changing lifestyle is in order. I will reevaluate him at your request. History of Present Illness HPI: Mr. Polk is a 31 year old male who is seen for neurologic consultation secondary to a spell of loss of consciousness. The exact circumstances beyond whatever happened are not clear. Apparently he was at his neighbor's house when it occurred. I am told that he was running at the time. In abruptly lost consciousness. He denies any warning sign or prodrome. There apparently was witnessed by his mom. No generalized tonic-clonic movements were identified. He has no previous episode of seizures. His urine tox screen was positive for marijuana as well as amphetamines. He denies the use of amphetamines but admits to marijuana. He has had an MRI scan of the brain which I did review personally and the study was normal. I also reviewed his EEG which was normal. There is no evidence of epileptiform activity identified in the study. However the EKG rhythm strip revealed an abnormal. Prolonged pauses were identified between beats. He did suffer an abrasion to the left. At this time he is alert and oriented in back to normal. Past Med Surg Social Fam HX - Past Medical History Medical history: no medical history Psychiatric history: no psych history - Past Surgical History Surgical History: no surgical history - Social History Smoking Status: Current every day smoker Smokeless Tobacco Status: No Alcohol use: none Drug use: none - Family History Grandmother Hx Family Cancer: Yes Mother Hx Family Cancer: Yes Medications and Allergies No Known Home Drugs 06/14/17 [History] No Known Allergies Allergy (Verified 05/19/16 17:44) All Systems: A 10-system review of systems was performed and is negative for pertinent findings except as documented above in the HPI. Review of Systems: A 10 point Review of systems is consistent with a history of present illness and otherwise negative. Physical Examination - Vital Signs Vital Signs: Initial Vital Signs Temp Pulse Resp BP Pulse Ox 98.3 F 72 16 138/74 98 06/14/17 17:08 06/14/17 17:08 06/14/17 17:08 06/14/17 17:08 06/14/17 17:08 - Neurologic Detailed motor examination: full strength in all major muscle groups Motor examination - right side: 5/5: deltoids, biceps, triceps, wrist flexion, wrist extension, parts interpreter, hip flexors, tibialis Anterior, quadriceps, toe extension (EHL), plantarflexion Motor examination - left side: 5/5: deltoids, biceps, triceps, wrist flexion, wrist extension, hip flexors, parts interpreter, quadriceps, tibialis Anterior, toe extension (EHL), plantarflexion Mental Status Examination: awake, alert, oriented to person, oriented to place, oriented to time, follows commands appropriately, answers questions appropriately, no agnosia, no aphasia, no aproxia Cranial nerve examination: PERRL, EOMI, visual beltran intact, corneal reflexes brisk symmetrically, sensory to face intact, mastication intact, no facial asymmetry is present, no dysarthria, hearing is intact symmetrically, soft palate elevates bilaterally upon phonation, gag reflex intact, flexes SCM and trapezius muscles symmetrically with full power, tongue protrudes midline, no atrophy or facial fasiculations present Cerebellar examination: no dysmetria, performs finger to nose and heel to tan symmetrically without ataxia, no gait ataxia, no truncal ataxia, no difficulty with rapid alternating movements Results - Laboratory Findings CBC and BMP: 06/15/17 04:47 06/14/17 18:17 Abnormal lab findings: Abnormal lab results Eosinophils # 0.7 K/mcL (0.0-0.6) H 06/15/17 04:47 POC Glucose 94 (58-89) H 06/14/17 17:32 Urine Clarity Cloudy (Clear) A 06/14/17 19:00 Urine Ketones Trace mg/dL (Negative) H 06/14/17 19:00 Ur Squamous Epith Cells Many per lpf (None-Few) H 06/14/17 19:00 Ur Amphetamines Screen Positive ng/mL (Uprnin=0999) H 06/14/17 19:00 U Marijuana (THC) Screen Positive ng/mL (Cutoff = 50) H 06/14/17 19:00 Consult Discharge Plan - Plan Referrals: NONE,PCP [Primary Care Provider] -
--- NOTE | 2017-06-15 19:04 | Internal Med Progress Note ---
Date of Encounter: 06/15/17 Time of Encounter: 19:02 - Assessment and plan (1) Syncope Current Visit: Yes Status: Acute Qualifiers: Syncope type: unspecified Qualified Code(s): R55 - Syncope and collapse (2) Substance abuse Current Visit: Yes Status: Acute (3) Tobacco abuse Current Visit: Yes Status: Acute (4) DVT prophylaxis Current Visit: Yes Status: Acute (5) Chest pain Current Visit: Yes Status: Acute Qualifiers: Chest pain type: unspecified Qualified Code(s): R07.9 - Chest pain, unspecified - Subjective Interval history: Hillary Polk is a 31-year-old male presented with a syncopal episode. the exact etiology of this patient's loss of consciousness is unknown. However the 2 items on the differential which would come to mind are seizure versus syncope. His MRI as well as EEG were both normal. However EKG does reveal abnormalities. The rhythm strip did show some pauses between beats. There is also amphetamine in his urine tox screen therefore perhaps cardiac arrhythmia due to symptomatic etiologies should be considered. Neuro is not convinced if he had seizure. Neuro has recommended to consult cardiology to rule out any arrhythmia. Echocardiogram could not clearly revealed atrial septal and acne. But it has normal LV systolic function and normal EF. - Constitutional Vitals: Temp Pulse Resp BP Pulse Ox 98.4 F 59 17 118/72 98 06/15/17 15:16 06/15/17 15:16 06/15/17 15:16 06/15/17 15:16 06/15/17 15:16 General appearance: Present: cooperative, A&O X 3, no acute distress, answers questions appropriately - Head Head exam: Present: atraumatic, normocephalic - Eye Eye exam: Present: PERRL, conjuntiva pink, sclera anicteric Pupils: Present: PERRL - Neck Neck exam general surgery: Present: supple, trachea midline. Absent: lymphadenopathy - Respiratory Respiratory exam: Present: CTAB. Absent: accessory muscle use, rales, rhonchi, wheezes - Cardiovascular Cardiovascular exam: Present: RRR, +S1, +S2. Absent: diastolic murmur, gallop, rubs, systolic murmur - GI/Abdominal GI/Abdominal exam: Present: normal bowel sounds, soft, no peritoneal signs. Absent: distended, tenderness - Extremities Exam Extremities exam: Present: warm, radial pulses palpable and symmetrical. Absent : calf tenderness, cyanotic, pedal edema - Neurological Exam Neurological exam: Present: CN II-XII intact, oriented X3, no focal deficits. Absent: pronater drift, facial droop, speech deficit - Skin Skin exam: Present: dry, intact Internal Medicine: Result - Labs CBC & Chem 7: 06/15/17 04:47 06/14/17 18:17 Labs: Short CBC 06/15/17 Range/Units 04:47 WBC 10.9 (4.3-11.1) K/mcL Hgb 13.8 (12.9-16.9) g/dL Hct 42.3 (37.5-50.1) % Plt Count 239 (140-400) K/mcL Neutrophils # 6.4 (1.6-8.9) K/mcL Cardiac Enzymes 06/15/17 06/15/17 Range/Units 04:47 10:57 Troponin I 0.00 0.00 (0-0.03) ng/mL - Impressions Impressions Brain MRI 06/15/17 07:00 IMPRESSION: Unremarkable MRI of the brain. No acute intracranial abnormality. D/ /15/2017 07:48:15 Magno Mario MD / [facility] Interpreting Provider: Magno Mario MD Consult Discharge Plan - Plan Referrals: NONE,PCP [Primary Care Provider] -
[2017-06-16] MEDS: *HR* Heparin 5,000 UNIT/ML VIAL SQ SCH ×3 (05:43→19:33)
[2017-06-16] MEDS: *HR* HYDROcodone/Acet 5/325 mg TABLET PO PRN ×3 (06:14→21:21)
--- NOTE | 2017-06-16 13:01 | Cardiology Consult Note ---
Date of Encounter: 06/16/17 Time of Encounter: 12:53 Assessment and Plan (1) Syncope Current Visit: Yes Status: Acute Syncopal event after change in position. Check orthostatic vitals. Will have him ambulate in hallway. TTE shows normal EF and no significant valvular disease. There was an echodense area in the intraatrial septim and echodensity in the RA with mild turbulent color flow in the subcostal views. Will consider different modality to assess. I will discuss with Dr. Sandoval. 24 Hour telemetry review shows periods of bradycardia . Lowest HR was 39 bpm at 0604 am. HR in the 40's throughout this morning. Patient reports sleeping alot. Maximum HR was 120 bpm. Nurse noted patient sleeping when she saw HR in the 40 's and HR increases when he wakes. Neuro consulted. MRI and EEG negative. H/o of substance abuse and heavy use of energy drinks. Drug screen positive for marijuana and amphetamines. He denies amphetamine use. Lifestyle changes discussed. Qualifiers: Syncope type: unspecified Qualified Code(s): R55 - Syncope and collapse (2) Substance abuse Current Visit: Yes Status: Acute Discussion w patient/family: The assessment and plan as outlined above was discussed with the patient and/or family members who expressed understanding and agreement. All questions were answered. Thank you for involving us in the care of your patient. Please call with any questions. History of Present Illness Consult date: 06/16/17 Requesting physician: Kameron Aparicio Consult reason: Syncope Chief complaint: Syncope History of present illness: Mr. Polk is a 31 year old male with no significant medical history who presented after experiencing a syncopal event at home. He reports sitting in a chair and then he stood up to go outside and he became lightheaded. He does not remember anything after that. He says he woke up with a laceration around his eye. He denies previous syncopal events. Denies loss of bladder or bowel. Denies vision changes. He also denies chest diony n or SOB. He states he was in his usual state of health prior to the event. He states that he does smoke marijuana on a daily basis. He denies other drug use. he drinks 8+ monster energy drinks a day. He does not drink water. Past Med Surg Social Fam HX - Past Medical History Medical history: no medical history Psychiatric history: no psych history - Past Surgical History Surgical History: no surgical history - Social History Smoking Status: Current every day smoker Smokeless Tobacco Status: No Alcohol use: none Drug use: none - Family History Grandmother Hx Family Cancer: Yes Mother Hx Family Cancer: Yes Medications and Allergies No Known Home Drugs 06/14/17 [History] 3 Allergy/AdvReac Type Severity Reaction Status Date / Time No Known Allergies Allergy Verified 05/19/16 17:44 All Systems Review: A 10-system review of systems was performed and is negative for pertinent findings except as documented above in the HPI. Physical Examination Vital Signs, Last 4 Hours Temp Pulse Resp BP Pulse Ox 06/16/17 11:42 98.0 F 54 15 117/69 97 General: No Apparent Distress, Other (Pt is not conversant, prompting needed to obtain history, depressed apearing.) HEENT: Atraumatic, Normocephaly, Mucus Membranes Moist Neck: No JVD, Normal carotid pulses Cardiac: Reg Rate and Rhythm, Normal S1 and S2, No Murmur Lungs: Normal Breath Sounds, No Wheeze, Rales, Rhonchi Neuro: Alert and responsive, No focal deficits noted Abdomen: Soft, Non-Tender Skin: No rashes noted on visualized skin, Other (patient skin very moist from sweating) Musculoskeletal: No Chest Wall Tenderness Extremities: No Clubbing, No Cyanosis, No Edema, Normal Pulses Results 06/15/17 04:47 06/14/17 18:17 - Imaging and Cardiology Echo: report reviewed - EKG Interpretation EKG results cardiology: personally reviewed Consult Discharge Plan - Plan Referrals: NONE,PCP [Primary Care Provider] -
--- NOTE | 2017-06-16 14:51 | Electrocardiograph Report ---
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
--- NOTE | 2017-06-16 18:48 | Internal Med Progress Note ---
Date of Encounter: 06/16/17 Time of Encounter: 18:46 - Assessment and plan (1) Syncope Current Visit: Yes Status: Acute Qualifiers: Syncope type: unspecified Qualified Code(s): R55 - Syncope and collapse (2) Substance abuse Current Visit: Yes Status: Acute (3) Tobacco abuse Current Visit: Yes Status: Acute (4) DVT prophylaxis Current Visit: Yes Status: Acute (5) Chest pain Current Visit: Yes Status: Acute Qualifiers: Chest pain type: unspecified Qualified Code(s): R07.9 - Chest pain, unspecified - Subjective Interval history: Hillary Polk is a 31-year-old male presented with a syncopal episode. the exact etiology of this patient's loss of consciousness is unknown. However the 2 items on the differential which would come to mind are seizure versus syncope. His MRI as well as EEG were both normal. However EKG does reveal abnormalities. The rhythm strip did show some pauses between beats. There is also amphetamine in his urine tox screen therefore perhaps cardiac arrhythmia due to symptomatic etiologies should be considered. Neuro is not convinced if he had seizure. Neuro has recommended to consult cardiology to rule out any arrhythmia. Echocardiogram could not clearly revealed atrial septal and we are awaiting for enrollment consultant to comment on it whether he needs any further studies.. Otherwise he has has normal LV systolic function and normal EF. Tachycardia while he is awake and sinus bradycardia when he sleeps has been observed by nursing but in any case he is asymptomatic and her blood pressure seems okay. As noted patient uses marijuana and denies using amphetamine or crystal meth. However he had drinks 8 months to drinks on daily basis . - Constitutional Vitals: Temp Pulse Resp BP Pulse Ox 98.4 F 63 16 114/72 99 06/16/17 18:41 06/16/17 18:41 06/16/17 18:41 06/16/17 18:41 06/16/17 18:41 General appearance: Present: cooperative, A&O X 3, no acute distress, answers questions appropriately - Head Head exam: Present: atraumatic, normocephalic - Eye Eye exam: Present: PERRL, conjuntiva pink, sclera anicteric Pupils: Present: PERRL - Neck Neck exam general surgery: Present: supple, trachea midline. Absent: lymphadenopathy - Respiratory Respiratory exam: Present: CTAB. Absent: accessory muscle use, rales, rhonchi, wheezes - Cardiovascular Cardiovascular exam: Present: RRR, +S1, +S2. Absent: diastolic murmur, gallop, rubs, systolic murmur - GI/Abdominal GI/Abdominal exam: Present: normal bowel sounds, soft, no peritoneal signs. Absent: distended, tenderness - Extremities Exam Extremities exam: Present: warm, radial pulses palpable and symmetrical. Absent : calf tenderness, cyanotic, pedal edema - Neurological Exam Neurological exam: Present: CN II-XII intact, oriented X3, no focal deficits. Absent: pronater drift, facial droop, speech deficit - Skin Skin exam: Present: dry, intact Internal Medicine: Result - Labs CBC & Chem 7: 06/15/17 04:47 06/14/17 18:17 - Impressions Impressions Brain MRI 06/15/17 07:00 IMPRESSION: Unremarkable MRI of the brain. No acute intracranial abnormality. D/ / 06/15/2017 07:48:15 Magno Mario MD / [facility] Interpreting Provider: Magno Mario MD Consult Discharge Plan - Plan Referrals: NONE,PCP [Primary Care Provider] -
[2017-06-17] MEDS: *HR* Heparin 5,000 UNIT/ML VIAL SQ SCH (05:04)
--- NOTE | 2017-06-17 07:05 | Carotid Imaging Report ---
Carotid Duplex Patient Name:Matias Polk Order Number:[id number] Procedure Date:06/15/2017 Date:1985Age:31 yrs Gender:Male Lt BP:121 / 85 mmHg Rt.BP:129 / 82 mmHgHeart Rate: Location:[facility] Room #: 3B39 Manager Pricing:Alla Andre, MARTIN, RVT Referring MD:Francisco Javier Ashley DO library manager:None Reading MD:Nicholas Mccullough MD Primary Indications:Syncope Risk Factors Yes/No Hypertension No Diabetes No Hypercholesterolemia No Smoking Current Yes Hx of TIA No Hx of CVA No Impressions: The right carotid artery is normal throughout. The left carotid artery has minimal plaque. Recommendations: After imaging the patient returned to their room. Findings Carotid Duplex: Right: There is antegrade spectral Doppler flow patterns in the right vertebral artery. Left: There is nonstenotic plaque in the left eca. There is smooth homogeneous plaque. There is antegrade spectral Doppler flow patterns in the left vertebral artery. Prior Study: No prior study available for comparison. Carotid Results Right PSV EDV Assessment Proximal CCA 148 30 Normal Mid CCA 115 29 Normal Distal CCA 120 28 Normal Bifurcation 107 36 Normal Proximal ICA 87 38 Normal Mid ICA 94 39 Normal Distal ICA 85 31 Normal ECA 102 22 Normal Vertebral Artery 72 23 Antegrade Flow Left PSV EDV Assessment Proximal CCA 188 35 Normal Mid CCA 141 41 Normal Distal CCA 133 38 Normal Bifurcation 103 31 Normal Proximal ICA 114 38 Normal Mid ICA 107 27 Normal Distal ICA 81 29 Normal ECA 126 19 Non Stenotic Plaque Vertebral Artery 68 19 Antegrade Flow Ratio's Right ICA/CCA Ratio: 0.82 ICA/CCA Values: 94/115 Left ICA/CCA Ratio: 0.81 ICA/CCA Values: 114/141 Updated by Nicholas Mccullough MD on 06/17/2017 7:00:26 AM electronically signed on 06/17/2017 7:00:38 AM with status of Final
[2017-06-17 07:07] VITALS: BP 119/72
--- NOTE | 2017-06-17 15:53 | Discharge Summary ---
Date of Encounter: 06/17/17 Time of Encounter: 15:51 - Discharge Diagnosis (1) Syncope Priority: Primary Status: Acute Qualifiers: Syncope type: unspecified Qualified Code(s): R55 - Syncope and collapse (2) Substance abuse Priority: Secondary Status: Acute (3) Tobacco abuse Priority: Secondary Status: Acute (4) DVT prophylaxis Priority: Secondary Status: Acute (5) Chest pain Priority: Secondary Status: Acute Qualifiers: Chest pain type: unspecified Qualified Code(s): R07.9 - Chest pain, unspecified - Discharge Medications Home Medications: No Known Home Drugs 06/14/17 [History] Allergies/Adverse Reactions: 3 Allergy/AdvReac Type Severity Reaction Status Date / Time No Known Allergies Allergy Verified 05/19/16 17:44 Procedures/tests Complete & Pending: Procedures Performed prior 72 hours Category Date Time Status MR head/brain wo con [MR] Routine MRI 06/15/17 07:00 Completed ECG 12 lead ECG [ECG] Routine Y 06/14/17 23:30 Completed EKG [ECG 12 lead ECG] [ECG] Stat Y 06/14/17 22:43 Completed EV carotid duplex imaging BI Routine Y 06/15/17 22:26 Completed EV echocardiogram Routine Y 06/15/17 22:26 Completed Date of admission: 06/14/17 21:48 Primary care physician: PCP NONE Consults: 06/15/17 11:20 Consult to Interpret Exam [CONS] Routine Consulting Provider: Cody Suarez Consult to Interpret Exam: Interpret EEG 06/15/17 19:01 Consult to Cardiology [CONS] Routine Comment: Consulting Provider: Sylvia Mckeon Reason for Consult: Syncope Time Notified: 19:01 Call Completed: No Discharging clinician: Kameron Aparicio Anticipated date of discharge: 06/17/17 - Patient Status Disposition: Left Against Medical Advice Condition: Good - Discharge Instructions Follow Up With: NONE,PCP [Primary Care Provider] - Hospital course: Mr Matias Polk is a 31-year-old male presented with a syncopal episode. the exact etiology of this patient's loss of consciousness is unknown. However the 2 items on the differential which would come to mind are seizure versus syncope. His MRI as well as EEG were both normal. However EKG does reveal abnormalities. The rhythm strip did show some pauses between beats. There is also amphetamine in his urine tox screen therefore perhaps cardiac arrhythmia due to symptomatic etiologies should be considered. Neuro is not convinced if he had seizure. Neuro has recommended to consult cardiology to rule out any arrhythmia. Echocardiogram could not clearly revealed atrial septal and we are awaiting for political consultant to comment on it whether he needs any further studies.. Otherwise he has has normal LV systolic function and normal EF. Tachycardia while he is awake and sinus bradycardia when he sleeps has been observed by nursing but in any case he is asymptomatic and her blood pressure seems okay. As noted patient uses marijuana and denies using amphetamine or crystal meth. However he had drinks 8 months to drinks on daily basis . He was planned to get a stress test this morning however before that he decided to leave him. Nursing is to have told him about heightened risk of morbidity and mortality and importance of staying and follow the medical advice. However he declined. - Time Spent with Patient Total time spent providing and/or coordinating discharge services: Greater than 30 minutes - Constitutional Vitals: Temp Pulse Resp BP Pulse Ox 98.1 F 54 16 119/72 98 06/17/17 07:04 06/17/17 07:04 06/17/17 07:04 06/17/17 07:04 06/17/17 07:04 General appearance: Present: cooperative, A&O X 3, no acute distress, answers questions appropriately - Head Head exam: Present: atraumatic, normocephalic Additional comments: Left forehead laceration improving - Eye Eye exam: Present: PERRL, conjuntiva pink, sclera anicteric Pupils: Present: PERRL - Neck Neck exam general surgery: Present: supple, trachea midline. Absent: lymphadenopathy - Respiratory Respiratory exam: Present: CTAB. Absent: accessory muscle use, rales, rhonchi, wheezes - Cardiovascular Cardiovascular exam: Present: RRR, +S1, +S2. Absent: diastolic murmur, gallop, rubs, systolic murmur - GI/Abdominal GI/Abdominal exam: Present: normal bowel sounds, soft, no peritoneal signs. Absent: distended, tenderness - Extremities Exam Extremities exam: Present: warm, radial pulses palpable and symmetrical. Absent : calf tenderness, cyanotic, pedal edema - Neurological Exam Neurological exam: Present: CN II-XII intact, oriented X3, no focal deficits. Absent: pronater drift, facial droop, speech deficit - Skin Skin exam: Present: dry, intact
== END 2017-06-17 07:58 | disposition left against medical advice (07) ==
LOC: 3BNU 17:07 → EMEROO 17:07 → 3BNU 21:56
PROVIDERS: ADMIT Nurse Practitioner Family; ATTEND Nurse Practitioner Family